=== PATIENT | male | born 1965 | race Caucasian/White ===

== ENCOUNTER 2017-01-14 06:33 | Day surgery (SDC) | payer BC ==
[2017-01-14] MEDS ORDERED: Midazolam 1 MG/ML 2 ML SDV ONE (06:52)
[2017-01-14] MEDS ORDERED: fentaNYL 100 MCG/2 ML SDV ONE (06:52)
[2017-01-14] MEDS ORDERED: Propofol 200 MG/20 ML SDV ONE (06:52)
[2017-01-14] MEDS ORDERED: Sodium Chloride 0.9% 1,000 ML IV SCH (07:00)
[2017-01-14 09:23] VITALS: BP 140/82
--- NOTE | 2017-01-24 12:24 | OR ---
DATE OF PROCEDURE: 01/14/2017 PROCEDURE: Colonoscopy. FINDINGS: Sigmoid colon polyp, 5 mm, completely removed using cold biopsy forceps. COMPLICATIONS: None. ANIMAL HUMANE AGENT SUPERVISOR: None. ANESTHETIC: MAC. PREOPERATIVE DIAGNOSIS: Screening colonoscopy. POSTOPERATIVE DIAGNOSIS: Screening colonoscopy. RISKS: Risks, benefits, alternatives, and limitations, including, but not limited to infection, bleeding, and perforation were explained to the patient. They wished to proceed. PROCEDURE IN DETAIL: The patient was placed in left lateral decubitus position. Digital rectal exam was performed without abnormality. The scope was introduced and advanced atraumatically to the ileocecal valve. The scope was brought back to the ascending, transverse, descending colon, and retroflexed. The patient was noted to have a sigmoid colon polyp, which was small, completely removed. No diverticulosis, no masses, no other areas of concern. The patient tolerated the procedure well. Juan Francisco Santamaria MD /[id number]
== END 2017-01-14 10:25 | disposition home or self-care (01) ==
LOC: JP.SDS 06:33
PROVIDERS: ATTEND Surgery
PROC: 0DBN8ZX Excision of Sigmoid Colon, Via Natural or Artificial Opening Endoscopic, Diagnostic (ICD-10-PCS; principal; 2017-01-14)
DX: Z12.11 Encounter for screening for malignant neoplasm of colon (principal); D12.5 Benign neoplasm of sigmoid colon
CPT/HCPCS: 45380; 88305; J2250; J2704; J3010; J7040